=== PATIENT | male | born 1950 | race Hispanic/Latino ===

== ENCOUNTER 2018-06-15 11:53 | Outpatient (CLI) | payer MEDICARE ==
--- NOTE | 2018-06-15 17:19 | Cat Scan Report ---
FINAL REPORT EXAM: CT SINUSES WO CON HISTORY: J34.2 DEVIARED NASAL SEPTUM TECHNIQUE: CT of the sinuses was performed without intravenous contrast. Reconstructions were included in the coronal and sagittal planes. PRIORS: None. FINDINGS: There is mucosal thickening of nearly all of the paranasal sinuses sparing the left frontal sinus. High attenuation material is seen within the left maxillary and sphenoid sinuses. There appears to be erosion of the right cribriform plate and right aspect of the valente perry. There is leftward nasal septum deviation. Erosive changes of the nasal bones are also noted. There is complete opacification of the ostiomeatal units on both sides. The previously seen area of low attenuation in the right frontal lobe is not well seen on this study. The orbits are intact. The mastoid air cells are clear. IMPRESSION: 1. Sinus disease which may represent fungal sinusitis with erosion of the right aspect of the cribriform plate and valente perry. Sinonasal carcinoma is not excluded. 2. Leftward nasal septum deviation. 3. Erosions of the nasal bones may be related to fungal sinusitis versus nasal polyps. Brice critical results protocol was initiated.
--- NOTE | 2018-06-15 17:19 | Cat Scan Report ---
FINAL REPORT EXAM: CT HEAD/BRAIN WO CON HISTORY: J34.2 DEVIATED NASAL SEPTUM TECHNIQUE: CT of the head was performed without intravenous contrast. PRIORS: None. FINDINGS: The ventricles are normal in shape and position. The ventricles are nondilated. No intracranial hemorrhage, mass effect, midline shift or evidence of acute ischemic infarct. The basilar cisterns are patent. There is a broad focal area of low attenuation in the right frontal region predominantly in the subcortical white matter. An old left basal ganglia lacunar infarct is seen. There is mucosal thickening of nearly all of the paranasal sinuses sparing the left frontal sinus. High attenuation material is seen within the left maxillary and sphenoid sinuses. There appears to be erosion of the right cribriform plate and right aspect of the valente perry. There is leftward nasal septum deviation. The extracranial soft tissues demonstrate no abnormality. The calvarium is intact. The orbits are intact. The mastoid air cells are clear. IMPRESSION: 1. Broad area of low attenuation in the right frontal region may represent an underlying abscess given erosion of the right aspect of the anterior skullbase. Further evaluation with MRI of the brain with and without contrast should be performed. It is possible that this area of low attenuation represents an old infarct or other lesion. 2. Diffuse sinus disease, likely fungal sinusitis. Sinonasal carcinoma not excluded. 3. Old left basal ganglia lacunar infarct. Brice critical results protocol was initiated.
--- NOTE | 2018-06-15 18:30 | Event Note ---
Date: 06/15/18 Received call from Simran Zamora RN [employer] re: Abnormal CT finding. After contacting Dr. Lux who states he thinks he gave this order several weeks ago (Dr. Lux is out of the country at this time) he recommends sending the patient to [facility]. Simran states she has contacted the patient's and instructed her to take him to [facility] immediately and to have [facility] send a NANCY to [facility] to have CT report faxed to the [facility] ED.
== END 2018-06-15 11:54 | disposition home or self-care (01) ==
LOC: CT 11:53
PROVIDERS: ATTEND Otolaryngology
DX: J34.2 Deviated nasal septum (principal); J32.9 Chronic sinusitis, unspecified; I63.8 Other cerebral infarction
CPT/HCPCS: 70450; 70486